=== PATIENT | male | born 1950 | race Caucasian/White ===

== ENCOUNTER 2018-02-01 06:07 | Emergency (ER) | payer MEDICARE, OTHER ==
[2018-02-01] MEDS ORDERED: Ketorolac Tromethamine 60 MG/2 ML VIAL ONE (06:56)
[2018-02-01] MEDS ORDERED: HYDROcodone/Acetaminophen 10/325 mg Tablet ONE (06:56)
--- NOTE | 2018-02-01 08:32 | RAD ---
RIGHT SHOULDER THREE VIEWS: History: Fall, pain. Comparison: None. FINDINGS: The glenohumeral joint space is preserved. No fracture or dislocation. Right ribs are unremarkable. IMPRESSION: No post-traumatic change. POS: [facility]
== END 2018-02-01 07:15 | disposition home or self-care (01) ==
LOC: MADERS 06:07
DX: S43.421A Sprain of right rotator cuff capsule, initial encounter (principal); E11.9 Type 2 diabetes mellitus without complications; I10 Essential (primary) hypertension; W19.XXXA Unspecified fall, initial encounter
CPT/HCPCS: 96372; J1885

== ENCOUNTER 2018-04-08 07:42 | Emergency (ER) | payer MEDICARE, OTHER | END 2018-04-08 08:35 | disposition home or self-care (01) | LOC: MADERS 07:42 | DX: J20.9 Acute bronchitis, unspecified (principal); E11.9 Type 2 diabetes mellitus without complications; I10 Essential (primary) hypertension | CPT/HCPCS: 99282 ==

== ENCOUNTER 2018-12-23 17:00 | Emergency (ER) | payer MEDICARE, OTHER ==
--- NOTE | 2018-12-23 19:09 | RAD ---
CHEST ONE VIEW: 12/23/18 HISTORY: Cough. FINDINGS: Borderline heart size. Old granulomatous disease. Anterior cervical fusion changes of the lower cervi barrington spine. Degenerative changes involving both shoulders. No confluent pneumonia, overt edema, or pleural effusion. IMPRESSION: Cardiomegaly without evidence for acute edema or confluent pneumonia. Left sided old granulomatous di sease. Atherosclerosis of the aorta. Postop changes lower cervical spine. POS: [facility]
[2018-12-23] MEDS ORDERED: Azithromycin 250 MG TAB ONE (19:14)
[2018-12-23] MEDS ORDERED: predniSONE 20 MG TAB ONE (19:14)
== END 2018-12-23 19:10 | disposition home or self-care (01) ==
LOC: MADERS 17:00
DX: J20.9 Acute bronchitis, unspecified (principal); E11.9 Type 2 diabetes mellitus without complications; I10 Essential (primary) hypertension
CPT/HCPCS: 71045; 87081; 87430; 87804; J7506

== ENCOUNTER 2018-12-31 14:51 | Emergency (ER) | payer MEDICARE, OTHER ==
--- NOTE | 2018-12-31 17:36 | RAD ---
CHEST TWO VIEWS: History: Cough. Comparison: FINDINGS: Calcified granuloma left lung base. No focal airspace consolidation, pneumothorax or effusion. Cardia c silhouette and mediastinal contours are within normal limits. IMPRESSION: No acute intrathoracic abnormality. POS: [facility]
== END 2018-12-31 17:23 | disposition home or self-care (01) ==
LOC: MADERS 14:51
DX: J20.9 Acute bronchitis, unspecified (principal); I10 Essential (primary) hypertension; E11.9 Type 2 diabetes mellitus without complications; Z87.891 Personal history of nicotine dependence; Z79.899 Other long term (current) drug therapy; Z79.82 Long term (current) use of aspirin
CPT/HCPCS: 71046; 87804; J7620

== ENCOUNTER 2019-01-16 08:33 | Outpatient (CLI) | payer MEDICARE, OTHER ==
--- NOTE | 2019-01-16 10:26 | ULT ---
THYROID ULTRASOUND: INDICATIONS: History of thyroid enlargement. FINDINGS: The right thyroid lobe measures 4.5 x 1.1 x 2 cm. The left thyroid lobe measures 5.1 x 1.7 x 2.6 cm. The thyroid isthmus measures 0.4 cm. There is a heterogeneous, solid, well circumscribed, wider th an tall nodule, within the mid left thyroid lobe, measuring 2.7 x 1.4 x 1.7 cm. No additional focal thyroid lesion is evident. IMPRESSION: TI-RADS 3 lesion involving the left thyroid lobe. This is greater than 2.5 cm in size. Recommend fi ne needle aspiration for further evaluation. POS: [facility]
== END 2019-01-16 08:34 | disposition home or self-care (01) ==
LOC: MADRAD 08:33
PROVIDERS: ATTEND Otolaryngology Plastic Surgery within the Head & Neck
DX: E04.1 Nontoxic single thyroid nodule (principal); E07.9 Disorder of thyroid, unspecified
CPT/HCPCS: 76536

== ENCOUNTER 2019-04-06 16:39 | Emergency (ER) | payer MEDICARE, OTHER ==
[2019-04-06] MEDS ORDERED: Cyclobenzaprine 10 MG TAB ONE (17:35)
[2019-04-06] MEDS ORDERED: Ondansetron PF 4 MG/2 ML Vial ONE (17:35)
[2019-04-06] MEDS ORDERED: Ketorolac Tromethamine 30 MG/ML VIAL ONE (17:35)
--- NOTE | 2019-04-06 18:29 | RAD ---
EXAM: XR Cerv Sp Ap Lat STANDARD PROVIDED CLINICAL HISTORY: Neck pain. COMPARISON: CT cervical spine on 09/14/2018. FINDINGS: There is anterior cervical fusion of the entire cervical spine with an anterior plate and screws branch sfixing the C2-C7 levels with intradiscal prostheses seen at all levels. No hardware complication is seen. There is slight anterolisthesis of C7 on T1, but this is a stable finding compared to the pr ior CT cervical spine. No fracture is visualized. The prevertebral soft tissues are within normal limits. Surgical clips overlie the left neck. IMPRESSION: Stable postoperative changes of the cervical spine compared to CT neck and 2018 with anterior cervica l fusion of C2-C7. Stable anterolisthesis of C7 on T1 is again seen.
== END 2019-04-06 18:37 | disposition home or self-care (01) ==
LOC: MADERS 16:39
DX: M54.12 Radiculopathy, cervical region (principal); K21.9 Gastro-esophageal reflux disease without esophagitis; E78.5 Hyperlipidemia, unspecified; I10 Essential (primary) hypertension; Z87.891 Personal history of nicotine dependence; Z79.899 Other long term (current) drug therapy; Z79.84 Long term (current) use of oral hypoglycemic drugs; Z79.82 Long term (current) use of aspirin
CPT/HCPCS: 72040; 96374; 96375; J1885; J2405

== ENCOUNTER 2019-05-14 10:48 | Emergency (ER) | payer MEDICARE, OTHER ==
[~2019-05-14 10:48] MED LIST: Nitroglycerin 0.4 MG TAB 1 EACH ONE
[2019-05-14] MEDS ORDERED: Nitroglycerin 0.4 MG TAB 1 EACH ONE (11:18)
--- NOTE | 2019-05-14 11:20 | RAD ---
EXAM: Single view of the chest HISTORY: Chest pain COMPARISON: 12/23/2018 FINDINGS: Single view of the chest shows an enlarged but stable cardiomediastinal silhouette. A calc ified granuloma is seen in the left lower lobe. There is no evidence of consolidation or pleural effusion. Postsurgical changes are seen in the cervical spine. IMPRESSION: No evidence of acute cardiopulmonary disease
[2019-05-14 11:22] LABS: #Basophils 0.1 thou/uL (0.0-0.2); #Eosinphils 0.2 thou/uL (0.0-0.7); #Lymphocytes 1.7 thou/uL (1.20-3.40); #Monocytes 0.7 thou/uL (0.11-0.59); #Neutrophils 5.9 thou/uL (1.40-6.50); %Lymphocytes 20.4 % (21.0-51.0); %Monocytes 7.7 % (0.0-10.0); Mean Corpuscular HGB CONC 34.7 g/dL (32.0-36.0); Mean Corpuscular Hemoglobin 29.6 pg (27.0-31.0); Mean Corpuscular Volume 85.4 fL (78.0-98.0); Mean Platelet Volume 6.1 fL (7.4-10.4); Platelet Count 199 thou/uL (130-400); Red Blood Cell (RBC) Count 4.71 mill/uL (4.70-6.10); White Blood Cell (WBC) Count 8.5 thou/uL (4.8-10.8)
[2019-05-14 11:41] LABS: ALT (SGPT) 27 U/L (8-55); AST (SGOT) 25 U/L (5-34); Albumin 4.5 g/dL (3.4-4.8); Alkaline Phosphatase 92 U/L (40-150); Anion Gap 17 mmol/L (10-20); BUN (Urea Nitrogen) 13 mg/dL (8.4-25.7); Bilirubin, Total 0.7 mg/dL (0.2-1.2); CK (CPK) 88 U/L (30-200); Calc. Creatinine Clearance 0 mL/min (70-130); Calcium 9.7 mg/dL (7.8-10.44); Carbon Dioxide 24 mmol/L (23-31); Chloride 103 mmol/L (98-107); Estimated GFR-MDRD 74; Glucose 128 mg/dL (80-115); Potassium 4.4 mmol/L (3.5-5.1); Protein, Total 7.5 g/dL (5.8-8.1); Sodium 140 mmol/L (136-145)
[2019-05-14] MEDS ORDERED: Nitroglycerin 2% Ointment 1 INCH/1 GM Packet ONE (12:25)
== END 2019-05-14 12:44 | disposition short-term general hospital (02) ==
LOC: MADERS 10:48
DX: I10 Essential (primary) hypertension (principal); K21.9 Gastro-esophageal reflux disease without esophagitis; E78.5 Hyperlipidemia, unspecified; E11.40 Type 2 diabetes mellitus with diabetic neuropathy, unspecified; Z79.899 Other long term (current) drug therapy; Z79.891 Long term (current) use of opiate analgesic; Z79.84 Long term (current) use of oral hypoglycemic drugs
CPT/HCPCS: 71045; 80053; 82550; 83880; 84484; 85025; 93005; 94760

== ENCOUNTER 2019-08-09 17:35 | Observation (INO) | payer MEDICARE, OTHER ==
[~2019-08-09 17:35] MED LIST changes: +Iopamidol 370 76% 100 ML VIAL ONE; -Nitroglycerin 0.4 MG TAB 1 EACH ONE
--- NOTE | 2019-08-09 18:55 | CT ---
CT STONE PROTOCOL: 08/09/19 HISTORY: Left lower quadrant abdominal pain. FINDINGS: Absence of oral and IV contrast reduces the sensitivity of the exam particularly for the evaluation o f solid organs and bowel. The patient is post cholecystectomy and right nephrectomy. There are calcul i in the left kidney, the largest measuring about 4 mm. No calculi is seen in the left ureter or the urinary bladder. No hydroureteronephrosis is seen. There are minimal dependent changes in lung bases. No free air of free fluid is seen in the abdomen o r pelvis. There are vascular calcifications without evidence of aneurysmal dilatation of the abdomina l aorta. There are degenerative changes in the spine. There are postop changes of right hip arthropla sty. The small bowel loops are not abnormally dilated. There is fecal material in the colon. There is colo sarah diverticulosis without evidence of diverticulitis. A small hiatal hernia is present. IMPRESSION: 1. Nonobstructing left renal calculi. 2. Colonic diverticulosis. 3. Small hiatal hernia. POS: [facility]
[2019-08-09 19:02] LABS: #Basophils 0.1 thou/uL (0.0-0.2); #Eosinphils 0.2 thou/uL (0.0-0.7); #Lymphocytes 1.8 thou/uL (1.20-3.40); #Monocytes 0.7 thou/uL (0.11-0.59); #Neutrophils 5.7 thou/uL (1.40-6.50); %Basophils 0.8 % (0.0-1.0); %Lymphocytes 20.9 % (21.0-51.0); %Monocytes 8.8 % (0.0-10.0); %Neutrophils 67.6 % (42.0-75.0); Hemoglobin 11.7 g/dL (14.0-18.0); Mean Corpuscular HGB CONC 34.8 g/dL (32.0-36.0); Mean Corpuscular Hemoglobin 29.8 pg (27.0-31.0); Mean Corpuscular Volume 85.6 fL (78.0-98.0); Mean Platelet Volume 5.5 fL (7.4-10.4); Platelet Count 213 thou/uL (130-400); RBC Distribution Width 11.5 % (11.5-14.5); Red Blood Cell (RBC) Count 3.92 mill/uL (4.70-6.10); White Blood Cell (WBC) Count 8.4 thou/uL (4.8-10.8)
[2019-08-09 19:03] LABS: Bilirubin Negative (Negative); Blood, Urine Negative (Negative); Clarity Clear (Clear); Glucose, Urine (Dipstick) 500 mg/dL (Negative); Leukocyte Negative (Negative); Nitrite Negative (Negative); Protein, Urine (Dipstick) Negative (Neg-Trace); Urobilinogen 0.2 mg/dL (Less than 2)
[2019-08-09] MEDS ORDERED: Morphine 4 MG/ML VIAL ONE ×3 (19:04→23:11)
[2019-08-09 19:19] LABS: ALT (SGPT) 23 U/L (8-55); AST (SGOT) 17 U/L (5-34); Albumin 3.9 g/dL (3.4-4.8); Alkaline Phosphatase 88 U/L (40-150); Anion Gap 14 mmol/L (10-20); BUN (Urea Nitrogen) 17 mg/dL (8.4-25.7); Bilirubin, Total 0.4 mg/dL (0.2-1.2); Calc. Creatinine Clearance 0 mL/min (70-130); Calcium 9.1 mg/dL (7.8-10.44); Carbon Dioxide 23 mmol/L (23-31); Chloride 106 mmol/L (98-107); Estimated GFR-MDRD 66; Globulin 2.5 g/dL (2.4-3.5); Glucose 174 mg/dL (83-110); Lipase 30 U/L (8-78); Potassium 3.9 mmol/L (3.5-5.1); Protein, Total 6.4 g/dL (5.8-8.1); Sodium 139 mmol/L (136-145)
[2019-08-09] MEDS ORDERED: Loperamide HCl 2 MG CAP ONE (21:38)
--- NOTE | 2019-08-09 22:02 | CT ---
CT Abdomen Pelvis W Con: 08/09/2019 8:24 PM CLINICAL INFORMATION: Left lower quadrant abdominal pain COMPARISON: 08/09/2019 at 6:32 PM TECHNIQUE: Multiple contiguous axial images were obtained and a CT of the abdomen and pelvis with IV contrast. Oral contrast was administered. Coronal and sagittal reformats were performed. FINDINGS: Lower Chest: within normal limits. Abdomen: Liver: within normal limits. Bile Ducts: Normal caliber. Gallbladder: Removed Pancreas: within normal limits. Spleen: within normal limits. Adrenals: within normal limits. Kidneys: Status post right nephrectomy. Nonobstructing left renal calcifications. Pelvis: Reproductive Organs: No pelvic masses. Ureters: within normal limits. Bladder: within normal limits. Peritoneum: No ascites or free air, no fluid collection. Bowel: Normal caliber. Scattered diverticula in the colon. Mesentery and Retroperitoneum: No enlarged mesenteric or retroperitoneal lymph nodes. Vessels: Atherosclerotic calcifications. Abdominal Wall: within normal limits. Bones: Degenerative changes in the spine. Right hip prosthesis. IMPRESSION: 1. No evidence of acute intraabdominal or pelvic abnormality. No changes occurred from the CT 3 hours ago. 2. Diverticulosis 3. Nonobstructing left renal calculi
[2019-08-10 00:45] VITALS: BMI 35.2
[2019-08-10] MEDS ORDERED: Calcium Carbonate 500 MG ChewTAB PO PRN (01:39)
[2019-08-10] MEDS ORDERED: Ondansetron PF 4 MG/2 ML Vial SLOW IVP PRN (01:39)
[2019-08-10] MEDS ORDERED: Senokot S 8.6-50 MG TAB PO PRN (01:41)
[2019-08-10] MEDS: HYDROcodone/Acetaminophen 10/325 mg Tablet PO PRN ×2 (01:45→12:18)
[2019-08-10 08:14] VITALS: TEMP 96.7
[2019-08-10] MEDS ORDERED: Enoxaparin Sodium 40 MG/0.4 ML SYRINGE SC SCH (09:00)
[2019-08-10 12:27] VITALS: BP 124/74
[2019-08-10] MEDS ORDERED: Cyclobenzaprine 10 MG TAB PO PRN (19:32)
[2019-08-10] MEDS ORDERED: Acetaminophen 500 MG TAB PO PRN (19:32)
[2019-08-10] MEDS ORDERED: Fluticasone Propionate Nasal Spray 16 gm Bottle NASAL PRN (19:32)
[2019-08-10] MEDS ORDERED: Gabapentin 300 MG CAP PO SCH (21:00)
[2019-08-10] MEDS ORDERED: Simvastatin 20 MG TAB PO SCH (21:00)
--- NOTE | 2019-08-11 03:14 | SS ---
DATE OF ADMISSION: 08/09/2019 DATE OF DISCHARGE: 08/10/2019 HISTORY OF PRESENT ILLNESS: Mr. Pascual is a 69-year-old male with history of diabetes, kidney stones, hypertension, neuropathic pain, dyslipidemia, and GERD. The patient reports history of status post partial nephrectomy. The patient reports that he has been having intermittent left lower quadrant pain in a while. The pain normally is bearable and goes away. He has not been to a urologist since he got transferred to [place]. The patient reports that over the past week, he had been having more frequently occurring left lower quadrant pain that he reports as crampy pain. Reports that taking acetaminophen and cyclobenzaprine makes the pain goes away. He initially thought it was just muscle cramps. On 08/09/2019 while in the clinic, he had another episode that lasted for a few minutes then pain subsided spontaneously. He went home that day asymptomatically. While at home, taht night he reports that the pain recurred and more severe, thus he was transferred to the ER by his . On further examination at the ER, CT scan of the abdomen without contrast showed nonobstructing left renal calculi, colonic diverticulosis, and small hiatal hernia. Subsequently, CT scan of the abdomen and pelvis with contrast was repeated, that showed no evidence of acute intraabdominal or pelvic abnormality, no changes occurred from the CT 3 hours ago, diverticulosis, and nonobstructing left renal calculi measuring 4 mm, the largest in the left kidney. From the ER, he received IV hydration, morphine total of 12 mg parenterally, both IV and IM route. The patient remains afebrile with stable vital signs, but reports persistent pain, thus he was admitted for 24-hour observation. The patient's IV medication was changed to Edmond while in the floor. Overall, the patient received 3 tablets of Edmond during his hospital stay. The patient reports significant improvement with narcotic. He was voiding freely, no significant hematuria, nausea, vomiting, fever, incontinence, gross hematuria , diarrhea, or constipation. He was eating fine a nd voiding freely with no reported obstructive symptoms. On 08/10/2019, late afternoon, the patient was feeling fine and deemed hemodynamically stable to be discharged home. He was referred to urologist for followup as outpatient. Dr. Pedroza was contacted and staff reports that the urologist will review his medical records and will be calling back the patient for appointment. After lengthy discussion with the patient and , both were into agreement to go home today with Edmond and Flomax in addition to existing home medications. To increase fluids. Strain urine all the time. He will follow up with the urologist anytime next week. PHYSICAL EXAMINATION: VITAL SIGNS: Prior to discharge; blood pressure 124/74, temperature 96.7, pulse 70, respirations 20, O2 saturations 95% on room air, weight 238 pounds and height 5 feet 9 inches. GENERAL: The patient is awake, alert, and oriented x3, comfortable on exam, not in distress. HEENT: Normocephalic, atraumatic, anicteric sclerae, oral mucosa is moist. NECK: Supple. No LAD. CHEST: Normal excursion. Clear to auscultation bilaterally. CARDIAC: RRR. Normal S1 and S2. ABDOMEN: Obese and soft. Normoactive bowel sounds. Nondistended.Mild tenderness in the left lower quadrant on deep palpation. No rebound. No guarding. Negative CVA tenderness bilaterally. No signs of peritonitis. EXTREMITIES: No edema. No cyanosis. ASSESSMENT AND PLAN: 1. Acute on chronic left lower quadrant pain. 2. Nonobstructing left nephrolithiasis by CT scan, 4mm the largest. 3. Diverticulosis. 4. Hiatal hernia. 5. Status post nephrectomy, status post cholecystectomy. 6. Hypertension, stable. 7. Gastroesophageal reflux disease, chronic. 8. Neuropathic pain, stable. Job ID: [id number] [id number]
[2019-08-11] MEDS ORDERED: metFORMIN 500 MG TAB PO SCH (08:00)
[2019-08-11] MEDS ORDERED: Amlodipine 5 MG TAB PO SCH (09:00)
[2019-08-11] MEDS ORDERED: Aspirin 81 mg Enteric Coated Tablet PO SCH (09:00)
[2019-08-11] MEDS ORDERED: Lisinopril 20 MG TAB PO SCH (09:00)
[2019-08-11] MEDS ORDERED: Loratadine 10 MG TAB PO SCH (09:00)
[2019-08-11] MEDS ORDERED: Furosemide 20 MG TAB PO SCH (09:00)
== END 2019-08-10 19:12 | disposition home or self-care (01) ==
LOC: MADERS 17:35 → MADMS 23:08 → INTOOBSV 23:08
PROVIDERS: ADMIT Family Medicine; ATTEND Family Medicine
DX: G89.29 Other chronic pain (principal); R10.32 Left lower quadrant pain; N20.0 Calculus of kidney; K57.30 Diverticulosis of large intestine without perforation or abscess without bleeding; K44.9 Diaphragmatic hernia without obstruction or gangrene; I10 Essential (primary) hypertension; K21.9 Gastro-esophageal reflux disease without esophagitis; E11.40 Type 2 diabetes mellitus with diabetic neuropathy, unspecified; E78.5 Hyperlipidemia, unspecified; Z87.891 Personal history of nicotine dependence; Z79.82 Long term (current) use of aspirin; Z79.899 Other long term (current) drug therapy; Z90.5 Acquired absence of kidney
CPT/HCPCS: 36415; 36416; 74176; 74177; 80053; 81003; 83605; 83690; 85025; 96372; 96374; 96376; G0378; J1650; J2270; Q9967

== ENCOUNTER 2021-01-08 16:28 | Emergency (ER) | payer MEDICARE, OTHER ==
[2021-01-08] MEDS ORDERED: Lidocaine 1% 20 ML MDV ONE (17:31)
[2021-01-08] MEDS ORDERED: cefTRIAXone\\ROCEPHIN 1 GM VIAL ONE (17:31)
== END 2021-01-08 18:03 | disposition home or self-care (01) ==
LOC: MADERS 16:28
DX: J01.90 Acute sinusitis, unspecified (principal); K21.9 Gastro-esophageal reflux disease without esophagitis; E78.5 Hyperlipidemia, unspecified; I10 Essential (primary) hypertension; E11.40 Type 2 diabetes mellitus with diabetic neuropathy, unspecified; Z85.528 Personal history of other malignant neoplasm of kidney; Z79.84 Long term (current) use of oral hypoglycemic drugs; Z79.82 Long term (current) use of aspirin; Z79.899 Other long term (current) drug therapy
CPT/HCPCS: 96372; 99283; J0696; J1040

== ENCOUNTER 2022-04-09 04:34 | Emergency (ER) | payer MEDICARE, OTHER ==
[2022-04-09] MEDS ORDERED: predniSONE 10 MG TAB ONE (05:55)
[2022-04-09] MEDS ORDERED: predniSONE 20 MG TAB ONE (05:55)
== END 2022-04-09 06:16 | disposition home or self-care (01) ==
LOC: MADERS 04:34
DX: J06.9 Acute upper respiratory infection, unspecified (principal); Z87.891 Personal history of nicotine dependence; Z79.899 Other long term (current) drug therapy; Z79.82 Long term (current) use of aspirin; Z79.84 Long term (current) use of oral hypoglycemic drugs; E11.40 Type 2 diabetes mellitus with diabetic neuropathy, unspecified; I10 Essential (primary) hypertension; K21.9 Gastro-esophageal reflux disease without esophagitis; E78.5 Hyperlipidemia, unspecified
CPT/HCPCS: 71046; J7512; J7620

== ENCOUNTER 2022-04-14 16:01 | Emergency (ER) | payer MEDICARE, OTHER ==
[2022-04-15 14:19] LABS: SARS-CoV-2 PCR by NAA Not Detected (NotDetected)
== END 2022-04-14 18:41 | disposition home or self-care (01) ==
LOC: MADERS 16:01
DX: Z20.822 Contact with and (suspected) exposure to COVID-19 (principal); K21.9 Gastro-esophageal reflux disease without esophagitis; E78.5 Hyperlipidemia, unspecified; I10 Essential (primary) hypertension; E11.40 Type 2 diabetes mellitus with diabetic neuropathy, unspecified; Z87.891 Personal history of nicotine dependence; Z79.899 Other long term (current) drug therapy; Z79.82 Long term (current) use of aspirin; Z79.84 Long term (current) use of oral hypoglycemic drugs; Z79.52 Long term (current) use of systemic steroids
CPT/HCPCS: 99283; U0003; U0005

== ENCOUNTER 2023-06-29 15:35 | Emergency (ER) | payer MEDICARE, OTHER ==
[2023-06-29] MEDS ORDERED: Ketorolac Tromethamine 30 MG/ML VIAL ONE (17:06)
== END 2023-06-29 17:08 | disposition home or self-care (01) ==
LOC: MADERS 15:35
DX: M54.10 Radiculopathy, site unspecified (principal); I10 Essential (primary) hypertension; E11.40 Type 2 diabetes mellitus with diabetic neuropathy, unspecified; E78.00 Pure hypercholesterolemia, unspecified; K21.9 Gastro-esophageal reflux disease without esophagitis; Z87.891 Personal history of nicotine dependence; Z79.82 Long term (current) use of aspirin; Z79.84 Long term (current) use of oral hypoglycemic drugs; Z79.899 Other long term (current) drug therapy
CPT/HCPCS: 96372; 99283; J1885

== ENCOUNTER 2024-09-23 09:04 | Emergency (ER) | payer MEDICARE, OTHER ==
[2024-09-23] MEDS ORDERED: Aspirin Chewable 81 MG TAB ONE (09:15)
[2024-09-23 09:31] LABS: #Basophils 0.1 thou/uL (0.0-0.2); #Eosinophils 0.1 thou/uL (0.0-0.7); #Lymphocytes 0.6 thou/uL (1.20-3.40); #Monocytes 0.8 thou/uL (0.11-0.59); #Neutrophils 12.9 thou/uL (1.40-6.50); %Basophils 0.5 % (0.0-1.0); %Eosinophils 0.6 % (0.0-10.0); %Lymphocytes 4.2 % (21.0-51.0); %Monocytes 5.5 % (0.0-10.0); %Neutrophils 89.3 % (42.0-75.0); Hematocrit 36.2 % (42.0-52.0); Hemoglobin 12.5 g/dL (14.0-18.0); Mean Corpuscular HGB CONC 34.5 g/dL (32.0-36.0); Mean Corpuscular Hemoglobin 30.3 pg (27.0-31.0); Mean Platelet Volume 6.7 fL (7.4-10.4); Platelet Count 171 10x3/uL (130-400); RBC Distribution Width 11.7 % (11.5-14.5); Red Blood Cell (RBC) Count 4.11 mill/uL (4.70-6.10); White Blood Cell (WBC) Count 14.4 10x3/uL (4.8-10.8)
[2024-09-23] MEDS ORDERED: Ketorolac Tromethamine 30 MG (1 mL) VIAL ONE (09:37)
[2024-09-23] MEDS ORDERED: Sodium Chloride 0.9% 100 ML ONE (09:38)
[2024-09-23] MEDS ORDERED: Azithromycin 500 MG VIAL ONE (09:38)
[2024-09-23] MEDS ORDERED: Dextrose 5% in Water 250 ML ONE (09:38)
[2024-09-23] MEDS ORDERED: cefTRIAXone (ROCEPHIN) 2 GM VIAL ONE (09:38)
[2024-09-23 09:49] LABS: ALT (SGPT) 29 U/L (8-55); AST (SGOT) 21 U/L (5-34); Albumin 3.8 g/dL (3.4-4.8); Alkaline Phosphatase 95 U/L (40-110); Anion Gap 18 mmol/L (10-20); BUN (Urea Nitrogen) 24 mg/dL (8.4-25.7); Bilirubin, Total 0.7 mg/dL (0.2-1.2); Calc. Creatinine Clearance 0 mL/min (70-130); Calcium 9.3 mg/dL (7.8-10.44); Carbon Dioxide 21 mmol/L (23-31); Chloride 105 mmol/L (98-107); Estimated GFR 68; Globulin 2.5 g/dL (2.4-3.5); Glucose 140 mg/dL (83-110); Protein, Total 6.3 g/dL (5.8-8.1); Sodium 140 mmol/L (136-145)
[2024-09-23 09:50] LABS: Troponin I Less than 0.010 ng/mL (< 0.028)
[2024-09-23 11:29] LABS: Bilirubin Negative (Negative); Blood, Urine Negative (Negative); Clarity Clear (Clear); Glucose, Urine (Dipstick) Negative (Negative); Ketone, Urine Negative (Negative); Leukocyte Negative (Negative); Nitrite Negative (Negative); Protein, Urine (Dipstick) Negative (Neg-Trace)
[2024-09-23 11:33] LABS: Bacteria/HPF Rare-Few HPF (None Seen); CAUTI Indications for Culture Fever or rigors; RBC/HPF 0-3 HPF (0-3); Squamous Epithelial 0-3 HPF (0-3); Urine Culture Reflex No No; WBC/HPF 0-3 HPF (0-3)
[2024-09-23] MEDS ORDERED: Ibuprofen 600 MG TAB ONE (12:26)
[2024-09-23] MEDS ORDERED: Acetaminophen 500 MG TAB ONE (14:00)
== END 2024-09-23 14:12 | disposition short-term general hospital (02) ==
LOC: MADERS 09:04
DX: J18.9 Pneumonia, unspecified organism (principal); I10 Essential (primary) hypertension; E11.9 Type 2 diabetes mellitus without complications; Z87.891 Personal history of nicotine dependence
CPT/HCPCS: 71045; 80053; 81001; 83880; 84484; 85025; 87400; 87426; 93005; 96365; 96367; 96375; J0456; J0696; J1885; J7070